=== PATIENT | female | born 1990 | race Hispanic/Latino ===

== ENCOUNTER 2023-06-22 13:39 | Outpatient (CLI) | payer BC | END 2023-06-22 13:40 | disposition home or self-care (01) | LOC: CSHULT 13:39 | PROVIDERS: ATTEND Nurse Practitioner Women's Health | DX: Z34.82 Encounter for supervision of other normal pregnancy, second trimester (principal); Z3A.20 20 weeks gestation of pregnancy | CPT/HCPCS: 76805 ==

== ENCOUNTER 2023-06-25 13:17 | Emergency (ER) | payer BC ==
[2023-06-25] MEDS ORDERED: Acetaminophen 500 MG TAB ONE (13:52)
[2023-06-25 14:57] LABS: SARS-CoV-2 NAA Rapid Test DETECTED (NotDetected)
== END 2023-06-25 15:20 | disposition home or self-care (01) ==
LOC: CSHERS 13:17
DX: O98.512 Other viral diseases complicating pregnancy, second trimester (principal); U07.1 COVID-19; Z3A.21 21 weeks gestation of pregnancy
CPT/HCPCS: 99283

== ENCOUNTER 2023-10-15 23:47 | Day surgery (SDC) | payer BC | END 2023-10-16 01:50 | disposition home or self-care (01) | LOC: CSHLD/OP 23:47 | PROVIDERS: ATTEND Family Medicine | DX: O47.1 False labor at or after 37 completed weeks of gestation (principal); O99.283 Endocrine, nutritional and metabolic diseases complicating pregnancy, third trimester; E03.9 Hypothyroidism, unspecified; Z3A.37 37 weeks gestation of pregnancy; Z79.899 Other long term (current) drug therapy ==

== ENCOUNTER 2023-10-27 05:30 | Inpatient (IN) | payer BC ==
[2023-10-27] MEDS ORDERED: Methylergonovine 0.2 MG/ML VIAL IM PRN (07:01)
[2023-10-27] MEDS ORDERED: Tranexamic Acid 1,000 MG/10 ML VIAL IVP PRN (07:01)
[2023-10-27] MEDS ORDERED: Lidocaine 1% (PF) 30 ML VIAL SC PRN (07:01)
[2023-10-27] MEDS ORDERED: Ibuprofen 800 MG TAB PO PRN (07:01)
[2023-10-27] MEDS ORDERED: hydrALAZINE 20 MG/ML VIAL SLOW IVP PRN ×2 (07:01→16:47)
[2023-10-27] MEDS ORDERED: Oxytocin 30 units/NS 500 ML 500 ML IV SCH ×3 (07:01)
[2023-10-27] MEDS ORDERED: Acetaminophen 500 MG TAB PO PRN (07:01)
[2023-10-27] MEDS ORDERED: Promethazine HCl 25 MG/ML VIAL IM PRN ×3 (07:01→16:47)
[2023-10-27] MEDS ORDERED: Carboprost 250 MCG/ML AMP IM PRN (07:01)
[2023-10-27] MEDS ORDERED: Diphenoxylate HCl/Atropine Tablet PO PRN (07:01)
[2023-10-27] MEDS ORDERED: Misoprostol 200 MCG TAB PR PRN (07:01)
[2023-10-27] MEDS ORDERED: Ondansetron PF 4 MG/2 ML Vial IVP PRN ×3 (07:01→16:47)
[2023-10-27] MEDS ORDERED: HYDROcodone/Acetaminophen 5/325 mg Tablet PO PRN ×2 (07:01→16:47)
[2023-10-27] MEDS ORDERED: Lactated Ringer's 1,000 ML IV SCH (07:01)
[2023-10-27] MEDS ORDERED: fentaNYL 50 mcg/mL 1 mL Vial SLOW IVP PRN (07:01)
[2023-10-27] MEDS ORDERED: Oxytocin 30 units/NS 500 ML 500 ML ONE (07:03)
[2023-10-27 07:48] LABS: Hematocrit 27.9 % (34.9-44.5); Mean Corpuscular HGB CONC 32.3 g/dL (32.0-36.0); Mean Corpuscular Hemoglobin 26.5 pg (27.0-33.0); Mean Corpuscular Volume 82.3 fl (81.6-98.3); Mean Platelet Volume 11.2 fl (7.4-10.4); Platelet Count 149 10x3/uL (150-450); Red Blood Cell (RBC) Count 3.39 10x6/uL (3.90-5.03)
[2023-10-27 07:49] VITALS: BMI 42.5
[2023-10-27] MEDS ORDERED: Bupivacaine 0.25% HCL 30 ML VIAL ONE (08:00)
[2023-10-27 08:26] LABS: Syphilis Antibody Nonreactive (Nonreactive); Syphilis Antibody Index 0.04 S/CO (<1.00 Non-Reactive)
[2023-10-27 08:27] LABS: HBSAg Index 0.17 S/CO (0-0.99); Hep B Surf Ag - L&D Non-Reactive S/CO (NonReactive)
[2023-10-27] MEDS ORDERED: fentaNYL/Ropivacaine Epidural 100 ML ONE (13:55)
[2023-10-27] MEDS ORDERED: ePHEDrine Sulfate 50 MG/10 ML VIAL SLOW IVP PRN (14:40)
[2023-10-27] MEDS ORDERED: Acetaminophen 325 MG TAB PO PRN (14:40)
[2023-10-27] MEDS ORDERED: Lactated Ringer's 500 ML IV PRN (14:40)
[2023-10-27] MEDS ORDERED: Moisturizing Cream (Eucerin) 113 GM JAR TOP PRN (14:40)
[2023-10-27] MEDS ORDERED: diphenhydrAMINE 50 MG/ML VIAL IVP PRN (14:40)
[2023-10-27] MEDS ORDERED: Naloxone HCl 0.4 mg/ml Vial IVP PRN ×2 (14:40)
[2023-10-27] MEDS ORDERED: Communication Order-Pharmacy FS SCH (14:45)
[2023-10-27] MEDS ORDERED: fentaNYL 2 mcg/Ropivacaine 0.2% Epidural 100 ML CADD EPIDURAL SCH (14:45)
[2023-10-27] MEDS ORDERED: Benzocaine-Menthol 82.5 ML CAN TOP PRN (16:47)
[2023-10-27] MEDS ORDERED: Milk Of Magnesia 30 ML UDCUP PO PRN (16:47)
[2023-10-27] MEDS ORDERED: Bisacodyl 10 MG SUPP PR PRN (16:47)
[2023-10-27] MEDS ORDERED: Boostrix 0.5 ML (Tdap) VIAL (>/=7 yrs of age) IM ONE (16:47)
[2023-10-27] MEDS ORDERED: diphenhydrAMINE 25 MG CAP PO PRN (16:47)
[2023-10-27] MEDS ORDERED: Lanolin Ointment 7 GM TUBE TOP PRN (16:47)
[2023-10-27] MEDS: Ferrous Sulfate 325 MG TAB PO SCH (17:42)
[2023-10-27] MEDS: Ibuprofen 800 MG TAB PO SCH (21:06)
[2023-10-27] MEDS: Docusate 100 MG CAP PO SCH (21:06)
[2023-10-28] MEDS: Ibuprofen 800 MG TAB PO SCH ×2 (06:19→13:52)
[2023-10-28] MEDS ORDERED: Prenatal Vitamin 1 TAB PO SCH (09:00)
[2023-10-28] MEDS: Docusate 100 MG CAP PO SCH (09:26)
[2023-10-28] MEDS: Ferrous Sulfate 325 MG TAB PO SCH ×2 (09:27→18:17)
[2023-10-28 11:46] VITALS: BP 111/59; TEMP 98
== END 2023-10-28 18:30 | disposition home or self-care (01) | DRG 807 ==
LOC: CSHLD 06:08 → CSHPP 17:23
PROVIDERS: ADMIT Family Medicine; ATTEND Family Medicine
PROC: 10E0XZZ Delivery of Products of Conception, External Approach (ICD-10-PCS; principal; 2023-10-27)
PROC: 10907ZC Drainage of Amniotic Fluid, Therapeutic from Products of Conception, Via Natural or Artificial Opening (ICD-10-PCS; 2023-10-27)
DX: O99.284 Endocrine, nutritional and metabolic diseases complicating childbirth (principal); Z37.0 Single live birth; E03.9 Hypothyroidism, unspecified; O99.214 Obesity complicating childbirth; Z3A.39 39 weeks gestation of pregnancy; Z79.899 Other long term (current) drug therapy
CPT/HCPCS: 51702; 85027; 86780; 86850; 86900; 86901; 87340; J2590; J3010; S0020